=== PATIENT | male | born 1935 | race Two or more races ===

== ENCOUNTER 2016-11-21 21:00 | Emergency (ER) | payer MEDICAID, OTHER ==
[~2016-11-21] VITALS: Ht 162.6 cm; Wt 81.6 kg
[~2016-11-21 21:00] MED LIST: CEPHALEXIN500 MG ORAL; NORCO 5-325 TA1 EACH ORAL
[2016-11-21] MEDS ORDERED: TdaP Vaccine 0.5ml Syr IM ONE (22:00)
--- NOTE | 2016-11-21 22:00 | Emergency Room Report ---
History of Present Illness General Chief Complaint: Laceration Source: Patient, Family Member Present Illness HPI This is an 81-year-old male with a history diabetes. He presents with chief complaint of fall and injury to the face. He said that he tripped outside in the rain fell and hit his chin. Sustained a laceration. No dental injury. Is not on blood thinner. Denies any fever or chills. No other complaint. Minimal pain. Allergies: Coded Allergies: NO KNOWN DRUG ALLERGIES (Unverified Allergy, Unknown, 12/18/14) Patient History Past Medical History: see triage record, old chart reviewed, DM Past Surgical History: other Pertinent Family History: none Social History: Denies: alcohol use Immunizations: other Reviewed Nursing Documentation: PMH: Agreed, PSxH: Agreed Nursing Documentation-PMH Hx Hypertension: Yes Hx Diabetes: Yes Review of Systems Eye: Denies: blurred vision, eye pain ENT: Denies: ear pain, nose congestion, throat swelling Respiratory: Reports: cough, Denies: shortness of breath Cardiovascular: Denies: chest pain, palpitations Gastrointestinal: Denies: abdominal pain, diarrhea, nausea, vomiting Musculoskeletal: Denies: back pain, joint pain Skin: Denies: rash Neurological: Denies: headache, numbness Endocrine: Denies: increased thirst, increased urine Hematologic/Lymphatic: Denies: easy bruising All Other Systems: negative except mentioned in HPI Physical Exam Vital Signs Date Time Temp Pulse Resp B/P Pulse Ox O2 Delivery O2 Flow Rate FiO2 11/21/16 21:37 98.1 102 18 181/84 96 Room Air vitals with hypertension Sp02 EP Interpretation: reviewed, normal General Appearance: well appearing, no apparent distress, alert Head: normocephalic, atraumatic Eyes: bilateral eye EOMI, bilateral eye PERRL ENT: hearing grossly normal, normal pharynx, other - Going through lower lip laceration. No foreign body. No obvious dental injury but he has dental caries. Neck: full range of motion, supple, no meningismus Respiratory: chest non-tender, lungs clear, normal breath sounds Cardiovascular #1: regular rate, rhythm, no murmur Gastrointestinal: normal bowel sounds, non tender, no mass, no organomegaly, no bruit, non-distended Musculoskeletal: back normal, gait/station normal, normal range of motion Psychiatric: mood/affect normal Skin: warm/dry Procedures Laceration/Wound Repair Laceration/Wound Repair : Consent: Verbal Wound Location: face Wound's Depth, Shape: into muscle, irregular, contused tissue Wound Length (cm): 3 Betadine Prep?: Yes Anesthesia: 1% Lidocaine Volume Anesthetic (ccs): 4 Wound Repaired With: sutures Suture Size/Type: 5:0, other - vicryl Number of Sutures: 5 Patient Tolerated: Well Complications: None Progress I placed 3 interrupt sutures on the outside. 2 interrupted sutures on the inside of his lip. I explored the wound prior to suturing. No foreign body. No missing teeth. Medical Decision Making Diagnostic Impression: Primary Impression: Laceration of lip with other complication Qualified Codes: S01.511A - Laceration without foreign body of lip, initial encounter Additional Impressions: Hypertension Qualified Codes: I10 - Essential (primary) hypertension Bronchitis Hyperglycemia due to type 1 diabetes mellitus Chronic kidney disease Qualified Codes: N18.9 - Chronic kidney disease, unspecified Obesity (BMI 30.0-34.9) Proteinuria ER Course Patient presents with a fall and laceration. While here, he spiked a fever. His son said his been coughing for the last few days. Coughing is productive of whitish sputum. We'll workup for sepsis. labs unremarkable. Renal function No evidence of DKA. Patient will be placed on antibiotics based Most likely a viral bronchitis. Antibiotics will also help with He felt better. We'll discharg Lab Results Impression labs with elevated creatinine EKG Diagnostic Results Rate: normal Rhythm: NSR ST Segments: no acute changes Chest X-Ray Diagnostic Results EP Interpretation: Yes Findings: no consolidation, no effusion, no pneumothorax, no acute cardiopulmonary disease Number of Views: 1 CT/MRI/US Diagnostic Results CT/MRI/US Diagnostic Results : Imaging Test Ordered: ct head Impression No acute process per radiologist. Last Vital Signs Date Time Temp Pulse Resp B/P Pulse Ox O2 Delivery O2 Flow Rate FiO2 11/21/16 21:37 98.1 102 18 181/84 96 Room Air Status: improved Disposition: HOME, SELF-CARE Condition: Stable Scripts Azithromycin* (ZITHROMAX*) 250 Mg Tablet 250 MG ORAL DAILY, #6 TAB 0 Refills Take two tablets by mouth today, then take one tablet by mouth daily for four days Prov: ALEXX PEREZ M.D. 11/22/16 Acetaminophen With Codeine (T#3) (TYLENOL #3 TAB*) Y Tab 1 TAB ORAL Q8H Y for For Pain, #20 TAB Prov: ALEXX PEREZ M.D. 11/22/16 Patient Instructions: Laceration Care, Adult Additional Instructions: Followup your Dr. in 2-3 days. Return if worse. Suture will fall off. ALEXX PEREZ M.D. Nov 21, 2016 22:00
[2016-11-21] MEDS ORDERED: Acetaminophen 500mg (ES) tab ORAL ONE (23:00)
[2016-11-21 23:18] VITALS: BP 168/79
[2016-11-22 00:09] LABS: APPEARANCE,URINE CLEAR; KETONES,URINE NEGATIVE (NEGATIVE); LEUKOCYTE ESTERASE ,URINE NEGATIVE (NEGATIVE); NITRITE,URINE NEGATIVE (NEGATIVE); PH,URINE 5 (4.5-8.0); PROTEIN,URINE 4+ (NEGATIVE); UROBILINOGEN,URINE NORMAL MG/DL (0.0-1.0)
[2016-11-22 00:09] LABS: BASOPHILS % (AUTO) 1.5 % (0.0-2.0); EOSINOPHILS % (AUTO) 0.2 % (0.0-3.0); LYMPHOCYTES % (AUTO) 9.4 % (20.0-45.0); MEAN CORPUSCULAR HEMOGLOBIN 30.2 PG (27.0-31.0); MEAN CORPUSCULAR HGB CONC 32.7 G/DL (32.0-36.0); MEAN CORPUSCULAR VOLUME 92 FL (80-99); MEAN PLATELET VOLUME 8.4 FL (6.5-10.1); MONOCYTES % (AUTO) 9.5 % (1.0-10.0); NEUTROPHILS % (AUTO) 79.5 % (45.0-75.0); PLATELET COUNT 199 K/UL (150-450); RED BLOOD COUNT 4.18 M/UL (4.70-6.10); RED CELL DISTRIBUTION WIDTH 12.9 % (11.6-14.8); WHITE BLOOD COUNT 11.6 K/UL (4.8-10.8)
[2016-11-22 00:15] LABS: RBC,URINE 0-2 /HPF (0 - 0); WBC,URINE 0-2 /HPF (0 - 0)
[2016-11-22 00:23] LABS: TROPONIN I < 0.30 ng/mL (<=0.30)
[2016-11-22 00:26] LABS: ALANINE AMINOTRANSFERASE 13 U/L (3-41); ALBUMIN/GLOBULIN RATIO 1.1 (1.0-2.7); ANION GAP 21 (5-15); ASPARTATE AMINO TRANSFERASE 20 U/L (5-40); CALCIUM 8.9 mg/dL (8.6-10.2); CARBON DIOXIDE 18 mEQ/L (20-30); CHLORIDE 95 mEQ/L (98-107); CREATININE 2.1 mg/dL (0.7-1.2); HEMOLYSIS 17; POTASSIUM 4.7 mEQ/L (3.4-4.9); SODIUM 134 mEQ/L (135-145)
[2016-11-22 00:36] LABS: CKMB 2.7 ng/mL (< 6.7)
[2016-11-22] MEDS ORDERED: ACETAMINOPHEN-1 EAC1 ORAL (01:11)
[2016-11-22] MEDS ORDERED: AZITHROMYCIN250 MG ORAL (01:11)
[2016-11-22 01:18] VITALS: BP 165/75
[2016-11-22 01:30] VITALS: BP 165/75
--- NOTE | 2016-11-22 08:52 | Diagnostic Imaging Report ---
Indications: Trauma, pain Technique: Continuous helical CT imaging of the brain was performed with automatic exposure control on a Siemens sensation [address] scanner. Axial and coronal images were reconstructed at 5 mm slice thickness and interval. CTDI volume(s): 70 mGy Total DLP: 1309 mGy-cm Findings: Comparison: None. And closed, cisterns, sulci mildly, diffusely prominent.. No evidence of mass or hemorrhage, other attenuation abnormality, mass effect, midline shift, hydrocephalus or increased intracranial pressure. Bone window images are unremarkable. Visualized paranasal sinuses and mastoid air cells are clear. Bilateral optic globes are mildly misshapen and do not demonstrate a lens. IMPRESSION: No evidence of acute injury or other acute intracranial pathology Age-appropriate atrophy. Bilateral mixed shape and optic globes with absent lenses-correlate with surgical history This correlates with [facility] preliminary report. The CT scanner at [facility] is accredited by the [employer] and the scans are performed using protocols designed to limit radiation exposure to as low as reasonably achievable to attain images of sufficient resolution adequate for diagnostic evaluation.
--- NOTE | 2016-11-22 10:57 | Diagnostic Imaging Report ---
Indications: Shortness of breath Technique: Portable AP chest Findings: Comparison: None Suboptimal inspiration limits evaluation. Cardiac silhouette partially obscured, may be enlarged. Pulmonary vasculature within normal limits. Visualized portions of lungs and pleura are grossly clear. Aortic arch calcified. IMPRESSION: No evidence of acute cardiopulmonary disease, limited as described. Basal abnormalities may be missed. Upright PA and lateral chest radiographs with better inspiratory effort and optimal technique recommended for more complete evaluation. Questionable cardiomegaly Aortosclerosis
--- NOTE | 2016-11-27 12:42 | Cardiology Report ---
APPROVED REPORT EKG Measurement Heart [id number] OK 150P0 [id number] Normal sinus rhythm Normal ECG
== END 2016-11-22 01:30 | disposition home or self-care (01) ==
LOC: EMR 21:58
DX: S01.511A Laceration without foreign body of lip, initial encounter (principal); W01.0XXA Fall on same level from slipping, tripping and stumbling without subsequent striking against object, initial encounter; Y92.9 Unspecified place or not applicable; J20.9 Acute bronchitis, unspecified; E10.65 Type 1 diabetes mellitus with hyperglycemia; I12.9 Hypertensive chronic kidney disease with stage 1 through stage 4 chronic kidney disease, or unspecified chronic kidney disease; N18.9 Chronic kidney disease, unspecified; E66.9 Obesity, unspecified; Z68.30 Body mass index [BMI] 30.0-30.9, adult; R80.9 Proteinuria, unspecified
CPT/HCPCS: 12052; 36415; 70450; 71010; 80053; 81003; 82550; 82553; 83605; 84484; 85025; 86710; 87040; 90471; 90715; 93005; 96374; 99284; Z7502